=== PATIENT | female | born 1930 | race Caucasian/White ===

== ENCOUNTER 2019-10-24 05:14 | Emergency (ER) | payer MEDICARE ==
[~2019-10-24] VITALS: Ht 165.1 cm; Wt 61.2 kg
[2019-10-24 05:20] VITALS: BP_SYST 152
--- NOTE | 2019-10-24 05:20 | NUR ---
Patient to ER bed 7 to gown for evaluation. Side rails up. Report given to AMRITA Foy.
--- NOTE | 2019-10-24 05:25 | NUR ---
Patient BIB EMS from [facility]. C/O fell and Laceration x today. Patient states "Rolled over and fell off the bed, left hand pain, no LOC." Hx GERD, Insomnia, Osteoporosis, HTN, Anxiety, Depression, IGT. A/O,X4, left hand pain, pain rate 3/10, laceration 2 cm, bleeding control, place patient on monitoring coordinator.
--- NOTE | 2019-10-24 05:34 | NUR ---
ER Dr. Case at bedside examining patient.
--- NOTE | 2019-10-24 05:50 | NUR ---
X-ray at bedside.
--- NOTE | 2019-10-24 05:56 | NUR ---
Patient transported to radiology via gurney, accompanied by [employer] Pan Tender.
[2019-10-24] MEDS ORDERED: LIDOCAINE 1%, 20 ML MDV 20 ML ONE (06:23)
--- NOTE | 2019-10-24 07:02 | NUR ---
Report received from AMRITA Foy for continuation of care.
[2019-10-24] MEDS ORDERED: BACITRACIN 1 GM OINT TP ONE (07:54)
[2019-10-24 09:25] VITALS: BP_SYST 148
--- NOTE | 2019-10-24 09:25 | NUR ---
Patient given written and verbal discharge instructions and verbalizes understanding. ER MD discussed with patient the results and treatment provided. Patient in stable condition. ID arm band removed. IV catheter removed intact and dressing applied, no active bleeding. Rx of bactroban given. Patient educated on pain management and to follow up with PMD. Pain Scale 0/10. Opportunity for questions provided and answered. Medication side effect fact sheet provided.
== END 2019-10-24 09:25 | disposition home or self-care (01) ==
LOC: SED 05:14
DX: S61.412A Laceration without foreign body of left hand, initial encounter (principal); S09.90XA Unspecified injury of head, initial encounter; Z88.6 Allergy status to analgesic agent; W06.XXXA Fall from bed, initial encounter; Y93.89 Activity, other specified; Y92.89 Other specified places as the place of occurrence of the external cause; Y99.8 Other external cause status
CPT/HCPCS: 12001; 70450; 70486; 73130; 99285; J2001

== ENCOUNTER 2020-02-06 14:07 | Emergency (ER) | payer MEDICARE ==
[~2020-02-06] VITALS: Ht 165.1 cm; Wt 55.8 kg
[2020-02-06 14:11] VITALS: BP_SYST 109
--- NOTE | 2020-02-06 14:11 | NUR ---
Patient to ER bed 2 to gown for evaluation. Side rails up.
--- NOTE | 2020-02-06 14:14 | NUR ---
Pt brought to ER via BLS ambulance after falling out of bed today. Pt presents with R head lac pain rating 1/10 no distress noted, VSS.
--- NOTE | 2020-02-06 14:20 | NUR ---
ER at bedside examining patient.
[2020-02-06] MEDS ORDERED: DIPH-TET-PERTUS Vaccine 0.5 ML VIAL (ADACEL) I.M. ONE (14:30)
[2020-02-06] MEDS ORDERED: BACITRACIN 1 GM OINT TP ONE (14:30)
--- NOTE | 2020-02-06 14:55 | NUR ---
Pt resting in [facility] at this time, no distress, no pain
[2020-02-06 15:12] VITALS: BP_SYST 109
--- NOTE | 2020-02-06 15:12 | NUR ---
Patient given written and verbal discharge instructions and verbalizes understanding. ER MD discussed with patient the results and treatment provided. Patient in stable condition. ID arm band removed. Patient educated on pain management and to follow up with PMD. Pain Scale 0/10. Opportunity for questions provided and answered. Medication side effect fact sheet provided.
== END 2020-02-06 15:12 | disposition home or self-care (01) ==
LOC: SED 14:07
DX: S01.01XA Laceration without foreign body of scalp, initial encounter (principal); Z88.6 Allergy status to analgesic agent; W06.XXXA Fall from bed, initial encounter; Y93.89 Activity, other specified; Y92.89 Other specified places as the place of occurrence of the external cause; Y99.8 Other external cause status
CPT/HCPCS: 90715; 99283